=== PATIENT | male | born 1960 | race Caucasian/White ===

== ENCOUNTER 2024-10-11 07:34 | Outpatient (OUT) | payer OTHER, SELFPAY ==
--- NOTE | 2024-10-11 | MR_ITS ---
[address] [address] Patient Name: VIV HUGHES MRN: [id number] date: 1960 Sex: M Assigned Patient Location: MRI Current Patient Location: MRI Accession/Order Number: [id number] Exam Date: 10/11/2024 13:01 Report Date: 10/11/2024 13:14 At the request of: KWASI RENEE DO Procedure: MR cervical spine wo con EXAMINATION: MRI C-SPINE WITHOUT IV CONTRAST CLINICAL HISTORY: Chronic cervical pain for years. No known injury. COMPARISON: None. TECHNIQUE: Multiecho imaging was performed in the sagittal and axial planes without contrast administration. FINDINGS: Vertebral body heights appear maintained. Cervicomedullary junction appears normal. No abnormal cord signal. No prevertebral soft tissue swelling. No paraspinal mass. At C2-3: No posterior disc pathology. No neural canal or foraminal stenosis. Facet joint degenerative change At C3-4: Disc osteophyte complex is present causing mild canal and moderate left-sided neural foraminal stenosis. Facet joint degenerative changes. At C4-5: No posterior disc pathology. No neural canal or foraminal stenosis. Facet joint degenerative changes. At C5-6: No posterior disc pathology. No neural canal or foraminal stenosis. Facet joint degenerative changes. At C6-7: No posterior disc pathology. No neural canal or foraminal stenosis. Facet joint degenerative changes. At C7-T1: No posterior disc pathology. No neural canal or foraminal stenosis. MR/MR cervical spine wo con IMPRESSION: Disc osteophyte complex present at C3-4 causing mild canal and moderate left-sided neural foraminal stenosis. Impression dictated by: Jairon Mccarty Jr., JanethOChandni10/11/2024 1:14 PM Dictation Location: [employer] [facility] Electronically authenticated by: [id number] Y Date: 10/11/2024 13:14
--- NOTE | 2024-10-11 | MR_ITS ---
The [address] [address] Patient Name: VIV HUGHES MRN: [id number] date: 1960 Sex: M Assigned Patient Location: MRI Current Patient Location: MRI Accession/Order Number: [id number] Exam Date: 10/11/2024 12:56 Report Date: 10/11/2024 13:38 At the request of: KWASI RENEE DO Procedure: MR thoracic spine wo con MR thoracic spine wo con 10/11/2024 9:03 AM SIGNS AND SYMPTOMS: Back pain after injury PROTOCOL: Multiplanar multisequence MR images of the thoracic spine were obtained without IV contrast COMPARISON: None. FINDINGS: A marker is present at the level of the C7 superior endplate posteriorly as well as the T9-T10 intervertebral disc level posteriorly. The bones of the thoracic spine are in anatomic alignment. There is preservation of vertebral body heights. There is disc desiccation with mild disc height loss at T9-T10 and T10-T11. There is accompanying anterior osteophyte formation with Modic type I endplate edema. No epidural or paraspinous fluid collection is appreciated. The visualized paraspinous soft tissues are within normal limits. At T1-T2: There is a normal disc, central canal, and neural foramen. At T2-T3: There is a normal disc, central canal, and neural foramen. At T3-T4: There is a normal disc, central canal, and neural foramen. At T4-T5: There is a normal disc, central canal, and neural foramen. At T5-T6: There is a normal disc, central canal, and neural foramen. At T6-T7: There is a normal disc, central canal, and neural foramen. At T7-T8: There is endplate osteophyte formation with facet hypertrophy contributing to mild left neural foraminal narrowing. No spinal canal narrowing. At T8-T9: There is endplate osteophyte formation with facet hypertrophy contributing to mild left neural foraminal narrowing. No spinal canal narrowing. At T9-T10: There is a broad-based disc bulge with facet hypertrophy contributing to mild spinal canal narrowing and mild to moderate bilateral neural foraminal stenosis. At T10-T11: Facet hypertrophy is present on the left contributing to mild to moderate left neural foraminal stenosis. No significant spinal canal narrowing. At T11-T12: There is a normal disc, central canal, and neural foramen. At T12-L1: There is a normal disc, central canal, and neural foramen. MR/MR thoracic spine wo con IMPRESSION: No cord compression or cord signal abnormality. Degenerative changes are noted in the mid and lower thoracic spine as above. There are variable degrees of spinal canal and neural foraminal stenosis which appear to be most pronounced at T10-T11 as above. Impression dictated by: Aron Torres M.D.10/11/2024 1:38 PM Dictation Location: [place] [address] Electronically authenticated by: [id number] Y Date: 10/11/2024 13:38
== END 2024-10-11 07:35 | disposition home or self-care (01) ==
LOC: MRI 07:35
PROVIDERS: Family Provider Internal Medicine; PCP Internal Medicine; Visit Provider Internal Medicine
DX: M54.9 Dorsalgia, unspecified (principal); M54.50 Low back pain, unspecified; M54.2 Cervicalgia; M62.830 Muscle spasm of back; M48.04 Spinal stenosis, thoracic region; M48.02 Spinal stenosis, cervical region
CPT/HCPCS: 72141; 72146

== ENCOUNTER 2024-10-15 14:33 | Outpatient (OUT) | payer OTHER, SELFPAY ==
--- NOTE | 2024-10-15 15:50 | P.CN_ITS ---
Consult Note: HPI Data of Consult Patient: new to practice Consult date: 10/15/24 Requesting Physician: Raven Bullock MD Primary Care Provider: KWASI RENEE DO Family Provider: MONICA LAYNE Consult Narrative Reason for consult: neck, midback pain Narrative: 64yom who presents for evaluation. notes worsening pain in neck, lower midback region. imaging reviewed, which shows multilevel facet degeneration of cervical spine. thoracic imaging shows multilevel degenerative changes and stenosis, worst at t9-10 and t10-11. has continued in a series of provider directed home exercises >6 weeks, without lasting benefit. uses otc pain meds as needed. denies adverse med side effects. cc:: CC: Raven Bullock MD Review of Systems ROS Status of ROS 10 or more systems reviewed and unremark able except as noted in history and below Exam Narrative Exam Narrative: Psych-alert and oriented x 3. Attentive and appropriate, constitutionally normal, displays normal mood and affect per situation. There are no obvious deficits in memory, reasoning, or intellect.? Skin-no obvious rashes, bruising, erythema noted to the patient's area of pain.? Extremities- extremities are warm with minimal edema and palpable pulses. Thoracic-tenderness to palpation noted in the thoracic spine and paraspinal musculature. Facet loading maneuvers are positive.? Strength-noted to be unremarkable Sensory-no notable sensory deficits to touch or pinprick in all dermatomal distributions with the exception to decreased sensation to the bilateral T9, 10, 11 dermatomal distribution Coordination remains intact.? Gait remains non-antalgic. Assessment and Plan Assessment and Plan (1) Thoracic radiculopathy: (2) Thoracic spinal stenosis: (3) Thoracic spondylosis: (4) Cervical spondylosis: Plan 64yom who presents for evaluation. failed conservative measures, as noted. imaging reviewed, as noted. given symptoms and imaging findings, prudent to attempt bilateral t9-10 tfesi under fluoroscopic guidance. also may benefit from diagnostic bilateral c5-6, 6-7 medial branch blocks in the future. he is in agreement. meds reviewed, no changes. follow up after procedure.
== END 2024-10-15 14:34 | disposition home or self-care (01) ==
LOC: PM 14:34
PROVIDERS: Family Provider Internal Medicine; PCP Internal Medicine; Visit Provider Anesthesiology
DX: M54.14 Radiculopathy, thoracic region (principal); M48.04 Spinal stenosis, thoracic region; M47.814 Spondylosis without myelopathy or radiculopathy, thoracic region; M47.812 Spondylosis without myelopathy or radiculopathy, cervical region
CPT/HCPCS: G0463

== ENCOUNTER 2024-10-29 06:58 | Day surgery (SDC) | payer OTHER, SELFPAY ==
[2024-10-29 07:03] VITALS: BP 156/99; PULSE 61; TEMP 36.3; O2SAT 99
[2024-10-29 07:48] VITALS: BP 142/93; PULSE 65; O2SAT 93
[2024-10-29] MEDS: DEXAMETHASONE SOD PHOS 10 MG/ML VIAL INJ (07:50)
[2024-10-29] MEDS: IOHEXOL 240 MG/ML - 10 ML VIAL INJ (07:50)
[2024-10-29] MEDS: 0.9 % SODIUM CHLORIDE 10 ML SYRINGE - SALINE FLUSH INJ (07:50)
[2024-10-29] MEDS: BUPIVACAINE HCL 0.25% PF 25 MG/10 ML VIAL INJ (07:50)
[2024-10-29 07:51] VITALS: BP 128/102; PULSE 62; O2SAT 97
[2024-10-29] MEDS: LIDOCAINE HCL 2% 400 MG/20 ML MDV 3 ML INJ (07:51)
--- NOTE | 2024-10-29 07:52 | W.PM.PROCNOT ---
Date of procedure: 10/29/24 Pre-op diagnosis: M54.14 Post-op diagnosis: same as pre-op Procedure: Procedure: Bilateral T9-10 transforaminal epidural steroid injection Medications: Bupivacaine 0.25% 2cc, lidocaine 2% 1cc, dexamethasone 10mg The patient was seen and examined in the preoperative holding area.? Informed consent was obtained and placed on the chart.? Patient was brought to the medical procedure unit and placed in the prone position where a timeout was completed verifying the correct patient, procedure site, position, and planned special equipment using sterile aseptic technique.? Under direct fluoroscopic visualization a 25-gauge Quincke tipped spinal needle was advanced at level left T9-10 to the designated neural foramen where contrast dye was injected to show adequate spread.? There was no evidence of vascular or adverse uptake.? Epidural spread was appreciated.? The above-mentioned injectate was then placed in a 1.5 mL aliquot preceded by negative aspiration.? The needle was removed. The same procedure, at the same level, was completed on the opposite side. ? Patient was taken to the postprocedural recovery area and monitored for an appropriate length of time before found suitable for discharge in the accompaniment of a responsible adult. Anesthesia: Local Surgeon: Raven Bullock Pathology: none sent Condition: stable Disposition: no change
== END 2024-10-29 07:57 | disposition home or self-care (01) ==
PROVIDERS: Family Provider Internal Medicine; PCP Internal Medicine; Visit Provider Anesthesiology
DX: M54.14 Radiculopathy, thoracic region (principal)
CPT/HCPCS: 64479; J0665; J1100; Q9966

== ENCOUNTER 2024-11-14 15:16 | Outpatient (OUT) | payer OTHER, SELFPAY ==
--- NOTE | 2024-11-14 15:37 | P.CN_ITS ---
Consult Note: HPI Data of Consult Patient: known to practice within the last 3 years Requesting Physician: Katja Hayden NP Primary Care Provider: KWASI RENEE DO Family Provider: MONICA LAYNE Consult Narrative Reason for consult: f/u Narrative: Chaitanya giang pleasant 64 year old male presents for evaluation and management of chronic middle back, neck, and left SIJ pain. longstanding hx of pain unresponsive to >6 weeks of provider guided HEP, heat, ice, tylenol, chiropractor. recently underwent bilateral T9/10 TFESI with >50% improvement ongoing. pt expresses concern over left SIJ pain. cc:: CC: Katja Hayden NP Review of Systems ROS Status of ROS 10 or more systems reviewed and unremark able except as noted in history and below Musculoskeletal Reports: back pain and joint pain PFSH PFSH Medical History (Updated 11/14/24 @ 15:39 by Katja Hayden NP) Osteoarthritis ?M19.90 - Unspecified osteoarthritis, unspecified site (ICD-10) Hiatal hernia ?K44.9 - Diaphragmatic hernia without obstruction or gangrene (ICD-10) Enlarged prostate ?N40.0 - Benign prostatic hyperplasia without lower urinary tract symptoms (ICD-10) High cholesterol ?E78.00 - Pure hypercholesterolemia, unspecified (ICD-10) HTN (hypertension) ?I10 - Essential (primary) hypertension (ICD-10) Kidney stone ?N20.0 - Calculus of kidney (ICD-10) Surgical History History of knee surgery ?Z98.890 - Other specified postprocedural states (ICD-10) History of hernia repair ?Z98.890 - Other specified postprocedural states (ICD-10) ?Z87.19 - Personal history of other diseases of the digestive system (ICD-10) History of shoulder surgery ?Z98.890 - Other specified postprocedural states (ICD-10) History of carpal tunnel release ?Z98.890 - Other specified postprocedural states (ICD-10) Meds Home Medications and Allergies Home Medications ?Medication ?Instructions ?Recorded ?Confirmed ?Type cetirizine 10 mg tablet (Aller-Tomás) 10 mg PO DAILY PRN allergy symptoms 10/16/24 10/29/24 History cyclobenzaprine 10 mg tablet 10 mg PO BID PRN muscle spasm 10/16/24 10/29/24 History ezetimibe 10 mg tablet 10 mg PO DAILY 10/16/24 10/29/24 History lidocaine 4 % topical patch 1 patch topical Q12H 10/16/24 10/29/24 History (Lidocare) tumeric 10/29/24 History Allergies Allergy/AdvReac Type Severity Reaction Status Date / Time NSAIDS (Non-Steroidal AdvReac Chest Pain Verified 10/29/24 07:07 Anti-Inflamma Exam Constitutional Documenting provider has reviewed patient's vital signs: yes Common normals: no apparent distress, oriented x3, healthy appearing, alert and well nourished General appearance: cooperative HENMT Common normals: normocephalic, hearing grossly normal bilaterally and moist oral mucous membranes Head and scalp: normocephalic Eye Common normals: PERRL Pupil: PERRL Neck & C-Spine Common normals: full ROM General: normal visual inspection Chest Common normals: inspection of chest normal Respiratory Common normals: normal respiratory effort, no retractions and no use of accessory muscles Back & Pelvis Thoracic spine/upper back: normal to inspection and thoracic ROM normal; no pain with ROM and no thoracic spinal tenderness Lumbar spine/lower back: normal to inspection and lumbar ROM normal Sacroiliac joints: SI joint(s) abnormal Other: negative thoracic radiculopathy left sij positive zeke(patricks), gaenslens, thigh thrust, compression test Neuro Common normals: oriented x3, CN's II-XII intact bilaterally, moves all extremities, no focal motor deficits, no sensory deficits noted and deep tendon reflexes 2+ bilaterally Sensorium/orientation: alert Motor exam: strength 5/5 throughout and no movement abnormalities noted Psych Common normals: mental status grossly normal, thought process normal, cooperative, affect normal, speech normal and activity/motor behavior normal Speech: normal speech Thought process: normal thought process Results Additional Findings Additional findings: If on a controlled substance or opioids, I have checked an [place] report on this patient and there are no aberrancies noted in the prescribing history.??If on a controlled substance or opioid a drug screen was completed and reviewed within the last year, and if there has not been a drug screen completed we ordered one today to monitor higher risk, state monitored pain medication use. As part of providing excellent, safe, comprehensive care, the following was completed at our patient's visit: 1. A medication reconciliation and review to ensure accurate knowledge of current/active medications, including asking our patients to inform us about any yfbe-wqm-ialuxtd medications or herbal remedies/nutritional supplements/alternative remedies. 2. A review to specifically ensure our patients have had annual screening for screening for depression, screening for tobacco use, and screening for unhealthy alcohol use. For concerning screenings had a discussion with the patient, provided patient education, and recommended follow-up with primary care provider when appropriate. If patient noted with a risk of falling, they received education on strength, gait, and balance training to prevent future risk of falling. Portions of this note may have been carried over from the previous visit and updated as appropriate. Please note this office utilizes paper charting in addition to the electronic edical record. A list of current medications, vitals, and PMH is available there as the clinical staff outside of myself do not have access to [employer] charting during the clinic day operations. As part of providing quality comprehensive care the current medications, vitals, and PMH were reviewed in the paper chart. Assessment and Plan Assessment and Plan (1) Thoracic radiculopathy: Assessment and Plan: >50% improvement ongoing from bilateral T9/10 TFESI on 10/29/24 (2) Thoracic spinal stenosis: (3) Cervical spondylosis: (4) Thoracic spondylosis: (5) Sacroiliitis: Plan pain well controlled at this time, continue HEP as tolerated, continue current medications. consider left SIJ injection in the future if needed, pain well controlled at this time per pt with medications stretching and chiropractor. f/u PRN
== END 2024-11-14 15:17 | disposition home or self-care (01) ==
LOC: PM 15:17
PROVIDERS: Family Provider Internal Medicine; PCP Internal Medicine; Visit Provider Nurse Practitioner
DX: M54.14 Radiculopathy, thoracic region (principal); M48.04 Spinal stenosis, thoracic region; M47.812 Spondylosis without myelopathy or radiculopathy, cervical region; M47.814 Spondylosis without myelopathy or radiculopathy, thoracic region; M46.1 Sacroiliitis, not elsewhere classified
CPT/HCPCS: G0463

== ENCOUNTER 2025-08-19 15:19 | Outpatient (OUT) | payer OTHER, SELFPAY ==
--- OUTSIDE RECORDS SUMMARY | 2025-08-19 15:25 | XMS_ITS | Clinical Summary ---
Author Organization [facility] Address [address] [place] [address] Care Team Providers Care Tobacco Dipper Name Role Phone Unavailable Primary Care Provider Unavailabl e Social History Tobacco UseTypesPacks/DayYears UsedDateSmoking Tobacco: Never AssessedSex and Gender InformationValueDate RecordedSex Assigned at BirthNot on fileLegal Sex Male11/03/2022 7:13 PM EDTGender IdentityNot on fileSexual OrientationNot on file Last Filed Vital Signs Vital SignReadingTime TakenCommentsBlood Ftpyiukg957/9705 12:00 PM EDT Pulse--Temperature--Respiratory Rate--Oxygen Saturation--Inhaled Oxygen Concentration--Kbooqi41.6 kg (213 lb)01/08/2021 12:00 PM MZLVhpbwn723.2 cm (5' 7 )01/08/2021 12:00 PM EDTBody Mass Index33.36001/08/2021 12:00 PM EDT Plan of Treatment Not on file
--- OUTSIDE RECORDS SUMMARY | 2025-08-19 15:25 | XMS_ITS | Clinical Summary ---
Author Organization [facility] Address [address] [place] [address], [address] [place] [address] Care Team Providers Care Industrial Hygenist Name Role Phone Unavailable Primary Care Provider Unavailabl e Social History Tobacco UseTypesPacks/DayYears UsedDateSmoking Tobacco: Never AssessedSex and Gender InformationValueDate RecordedSex Assigned at BirthNot on fileLegal Sex Male10/01/2012 6:18 PM ESTGender IdentityNot on fileSexual OrientationNot on file Plan of Treatment Not on file
--- OUTSIDE RECORDS SUMMARY | 2025-08-19 15:25 | XMS_ITS | Patient Health Record ---
Author Organization [facility] [place] Address [address] [place] [address] Care Team Providers Care Green Tire Inspector Name Role Phone Tyree Sharpe DO Primary Care Provider Unavail able Allergies Allergen (clinical drug ingredient) Drug/Non Drug Allergy documented on EMR Reaction Allergy Type Onset Date Status naproxen Naproxen Unknown Drug Allergy Active Reason For Referral No Information Medications Medication SIG (Take, Route, Frequency, Duration) Notes Start Date End Date Status Crestor 40 MG 1 tablet Orally Once a day; Dura tion: 30 day(s) ActivePrevacidActive Social History Tobacco Use: Social History Observation Description Date Details (start date - stop date) Former Smoker NA - NA Tobacco Use/Smoking Question Answer Notes Patient is a former smoker Plan Of Treatment No Information Insurance Providers Payer Name Payer Address Payer Phone Subscriber Number Group Number Insured Name Patient Relationship to Insured Coverage Start Date Coverage End Date [employer] [address] [address] [place], [place] [id number] [facility] Daniele Tavares Self - patient is the insured 9 Medical (General) History Medical History History ICD Code No Defibrilator No PacemakerSurgical History Surgery Date(Month/Year) kidney stone kneeshouldercarpel tunnel
--- OUTSIDE RECORDS SUMMARY | 2025-08-19 15:25 | XMS_ITS | Clinical Summary ---
Author Organization [facility] Address [address] [place] [address] Care Team Providers Care Tractor Drill Operator Name Role Phone René DARLING MD, Tonny Brink Primary Care Provider [phone] Allergies Active AllergyReactionsCriticalityNoted JzuoWnvurofhNnoc40/08/2010[place] 10/27/2009Wheat Cynafi6910/27/2009 Medications MedicationSigDispense QuantityRefillsLast FilledStart DateEnd DateStatus esomeprazole mag trihydrate(NEXIUM 20 MG CAP) Take one(1) tablet two(2) times daily.ctive mometasone furoate(NASONEX 50 MCG/ACTUATION SPRAY) [place] twice in each nostril once daily.ctive NEOMYCIN 500 MG TAB Take one(1) tablet three times daily.ctive SACCHAROMYCES BOULARDII 250 MG ORAL PACKET Take four (4) tables uxdad245ctive ferumoxsil(GASTROMARK 175 MCG/ML ORAL SUSP) Gastro-Cleanse - use as directed.ctive Active Problems ProblemNoted DateDiagnosed SeehVwsbqaygry07/04/2010Erectile dysfunction 08/25/2009 Social History Tobacco UseTypesPacks/DayYears UsedDateSmoking Tobacco: Never AssessedSex and Gender InformationValueDate RecordedSex Assigned at BirthNot on fileLegal Sex Male07/23/2012 8:26 AM ESTGender IdentityNot on fileSexual OrientationNot on file Last Filed Vital Signs Vital SignReadingTime TakenCommentsBlood Vbagkdru390/9210/27/2009 3:22 PM EST Cspzw050910/27/2009 3:22 PM KAWGnsevxzsbdn46.2 ??C (99 ??F)10/27/2009 1:14 PM EST Respiratory Bslw446510/27/2009 3:22 PM ESTOxygen Saturation--Inhaled Oxygen Concentration--Ctxout87.7 kg (211 lb)10/27/2009 1:14 PM ZNWJtcqgh702.6 cm (5' 6 )10/27/2009 1:14 PM ESTBody Mass Index34.0610/27/2009 1:14 PM EST Plan of Treatment Health MaintenanceDue DateLast DoneCommentsAnxiety Psvuppibz21/09/1979Depression Ddnzgrkto39/09/1979HIV Khclrkcoh47/09/1979Hepatitis C Bblpalrfx54/09/1979 DTaP,Tdap,Td Vaccine (1 - Tdap)1980Lipid Uieoerrhx43/09/1996CT Yqlhbwplkxcb72/09/2006Cologuard (FIT-DNA)04/30/20066001Wxxglqvbrgq70/09/2006 Colorectal Cancer Ynowjimkh83/09/2006Diabetes Ggepuktcy17/09/2006Fecal Occult Blood2006Prostate Cancer Screening Oynekjsijm35/09/2006Sigmoidoscopy 2006Pneumococcal Vaccine: 50+ (1 of 1 - PCV)2011Shingrix Vaccine (1 of 2)2011Covid-19 Vaccine (1 - 2024- season)2025Influenza Vaccine (#1)2025RSV Vaccine (1 - 1-dose 75+ series)2036 Insurance Care Teams Team MemberRelationshipSpecialtyStart DateEnd Date Tonny Merritt II, MD PCP - Oxeoqvi59/2/09
--- OUTSIDE RECORDS SUMMARY | 2025-08-19 15:25 | XMS_ITS | Clinical Summary ---
Author Organization [employer] tem Address [id number] [address] [place] [address] Care Team Providers Care Supervisor Drilling And Shooting Name Role Phone Dell Myers DO, Charles L Primary Care Provider Allergies Active AllergyReactionsCriticalityNoted EnriSdplhyeqQjcqtydkQqk86/20/2019 Medications MedicationSigDispense QuantityRefillsLast FilledStart DateEnd DateStatus ondansetron ODT (ZOFRAN ODT) 4 mg disintegrating tablet Dissolve 1 tablet (4 mg total) on tongue 3 (three) times a day as needed for nausea for up to 3 doses. 3 tablet 4Active Additional Information Patient not taking.Reported on 12/04/2024 ezetimibe (ZETIA) 10 mg tablet Take 1 tablet (10 mg total) by mouth in the morning.Active cetirizine (ZyrTEC) 10 MG chewable tablet Chew 1 tablet (10 mg total) and swallow in the morning.Active Active Problems ProblemNoted DateDiagnosed DateHiatal hernia with GERD without esophagitis Encounters DateTypeDepartmentCare SpuuTwwbkwvoqll00/20/2025Orders Only [facility] [address] [phone] Margie Mccann RN Ascending aorta dilatation (Primary Dx)05/27/2025 9:30 AM EDT - 05/27/2025 10:15 AM EDTSurgery [facility] [address] [place] [phone] Evgeny Lee MD ESOPHAGOGASTRODUODENOSCOPY EHLBDUHQEY25/06/2025 9:[address] [facility] - [facility] [address] [address] [place] [phone] Evgeny Lee MD Peterson, Lauren L Jr., SALES AND DISTRIBUTION CLERK-PATIENT EXPERIENCE COORDINATOR 05/27/2025 8:32 AM EDT - 05/27/2025 10:[address] [facility] [address] [facility] [place] [phone] Evgeny Lee MD Esophageal dysphagia; Pseudopolyposis of colon, unspecified complication status, unspecified part of colon ([facility]) Discharge Disposition: Home05/27/2025Travelfrom Last 3 Months Family History Medical HistoryRelationNameCommentsCancerFatherCancerMotherskin and breast pancreaticRelationNameStatusCommentsFatherMother Social History Tobacco UseTypesPacks/DayYears UsedDateSmoking Tobacco: FormerSmokeless Tobacco: Never Tobacco Cessation:Counseling Given: Not Answered Alcohol UseStandard Drinks/WeekCommentsYes0 (1 standard drink = 0.6 oz pure alcohol)OCCASIONALLYChildcareAnswerDate LgiflcfeRnnwfydakYusctpy09/12/2019 EmploymentAnswerDate TfkqobijYdpiaxuircHttfrns70/12/2019Hunger ScreeningAnswer Date RecordedWithin the past 12 months we worried whether our food would run out before we got money to buy more.Never True12/04/2024Within the past 12 months the food we bought just didn't last and we didn't have money to get more.Never True12/04/2024Purpose - LifeAnswerDate RecordedPurpose and direction in life Nblpdls1110/02/2020ex and Gender InformationValueDate RecordedSex Assigned at BirthNot on fileLegal GbdPogy8603/27/2015 11:34 AM EDTGender IdentityNot on file Sexual OrientationNot on file Last Filed Vital Signs Vital SignReadingTime TakenCommentsBlood Yuvaxwtf020/9610 10:10 AM EDT Ppazz245005/27/2025 10:10 AM DIOSaetrbqoqgc16.5 ??C (97.7 ??F)12/12/2023 1:24 PM EDTRespiratory Inha5240 10:10 AM EDTOxygen Bamtublhqs15%05/27/2025 10:10 AM EDTInhaled Oxygen Concentration--Omqupb44 kg (205 lb)05/27/2025 9:00 AM EDT Eaxksq519.6 cm (5' 6 )05/27/2025 9:00 AM EDTBody Mass Index33.0905/27/2025 9:00 AM EDT Plan of Treatment DateTypeDepartmentCare Team (Latest Contact Info)Qfurahfmprk90/30/2026 1:00 PM EDTAppointment [facility] [place] [address] [place] [phone] Health MaintenanceDue DateLast DoneCommentsDepression Pmbdhbtee06/09/1973Adult BMI Follow Up Plan1979DTaP,Tdap and Td Vaccines (1 - Tdap)1980Zoster (Shingles) Vaccine (1 of 2)2011Influenza Iavlyte1404/22/2025dult BMI Ztwidytru06Tobacco Levryjtji26RSV ( or age 60+ yrs) (1 - 1-dose 75+ series)2036 Medical Devices Not on file Procedures Procedure NamePriorityDate/TimeAssociated DiagnosisCommentsCOLONOSCOPY DIAGNOSTIC / CQLCGGZCN09/06/2025 9:23 AM EDT dysphagia,colon polyps Case Notes CARSON 45 MIN.T./DNM Special Needs DNM ESOPHAGOGASTRODUODENOSCOPY CPSPOCPSNU58/06/2025 9:23 AM EDT dysphagia,colon polyps Case Notes [facility]SON 45 MIN.T./DNM Special Needs DNM PROVATION RFKAnepmwr77/06/2025 8:53 AM EDT Esophageal dysphagia Pseudopolyposis of colon, unspecified complication status, unspecified part of colon ([facility]) PROVATION WMUQVLSJCJXTwtnssv05/06/2025 8:53 AM EDT Esophageal dysphagia Pseudopolyposis of colon, unspecified complication status, unspecified part of colon ([facility]) from Last 3 Months Results * EGD Report (05/27/2025 8:53 AM EDT)Specimen (Source)Anatomical Location / LateralityCollection Method / VolumeCollection TimeReceived Time Narrative SYSTEMGENERATED, DOCUMENTATION - 05/27/2025 8:53 AM EDT This order has been auto-finalized for image and report archival in PACs. *For full report details, please reach out to your physician. ??This image is visible to you in MyChart.* Authorizing ProviderResult TypeResult StatusEvgeny Lee MDIMG OR IMG ORDERABLESFinal Result * Colonoscopy Report (05/27/2025 8:53 AM EDT)Specimen (Source)Anatomical Location / LateralityCollection Method / VolumeCollection TimeReceived Time Narrative SYSTEMGENERATED, DOCUMENTATION - 05/27/2025 8:53 AM EDT This order has been auto-finalized for image and report archival in PACs. *For full report details, please reach out to your physician. ??This image is visible to you in MyChart.* Authorizing ProviderResult TypeResult Rafita LESTERG OR IMG ORDERABLESFinal Result from Last 3 Months Insurance Care Teams Team MemberRelationshipSpecialtyStart DateEnd Date Tyree Sharpe Jr., [address] [place], [place] [phone] [facility]12/12/23
--- NOTE | 2025-08-19 15:28 | XR_ITS ---
The [address] [address] Patient Name: VIV HUGHES MRN: [id number] date: 1960 Sex: M Assigned Patient Location: [facility] Current Patient Location: Accession/Order Number: [id number] Exam Date: 08/19/2025 15:39 Report Date: 08/20/2025 01:00 At the request of: KWASI RENEE DO Procedure: XR hip LT min 2V XR hip LT min 2V 08/19/2025 3:44 PM SIGNS AND SYMPTOMS: ^Left Hip Pain PROTOCOL: Frontal and frog-leg views of the left hip COMPARISON: None FINDINGS: There is no evidence of fracture or dislocation. There is mild narrowing of the left hip joint space with os acetabuli suggesting underlying labral pathology. There is enthesophyte formation at the greater trochanter. XR/XR hip LT min 2V IMPRESSION: No acute bony injury. There is mild narrowing of the left hip joint space with os acetabuli suggesting underlying labral pathology. Impression dictated by: Aron Torres M.D. 08/20/2025 1:00 AM Dictation Location: [place] [address] Electronically authenticated by: [id number] Y Date: 08/20/2025 01:00
--- NOTE | 2025-08-19 15:28 | XR_ITS ---
The [place] [id number] Patient Name: VIV HUGHES MRN: [id number] date: 1960 Sex: M Assigned Patient Location: [facility] Current Patient Location: Accession/Order Number: [id number] Exam Date: 08/19/2025 15:39 Report Date: 08/20/2025 00:59 At the request of: KWASI RENEE DO Procedure: XR knee VIKRAM 3V XR knee VIKRAM 3V 08/19/2025 3:44 PM SIGNS AND SYMPTOMS: ^Bilateral Knee Pain PROTOCOL: Frontal, lateral, and oblique radial graphs of the bilateral knees COMPARISON: None FINDINGS: There is narrowing of the weightbearing joint spaces greatest medially. There is spurring of the tibial spines. There is patellofemoral joint space loss bilaterally with spurring at the superior poles of the patella. There is no joint effusion. No soft tissue swelling. No fracture or dislocation. XR/XR knee VIKRAM 3V IMPRESSION: No acute bony injury. Tricompartmental degenerative changes are noted greatest in the patellofemoral joint spaces. Impression dictated by: Aron Torres M.D. 08/20/2025 12:59 AM Dictation Location: [place] [address] Electronically authenticated by: [id number] Y Date: 08/20/2025 00:59
== END 2025-08-19 15:20 | disposition home or self-care (01) ==
LOC: RAD 15:22
PROVIDERS: Family Provider Internal Medicine; PCP Internal Medicine; Visit Provider Internal Medicine
DX: M25.561 Pain in right knee (principal); M25.562 Pain in left knee; M25.552 Pain in left hip
CPT/HCPCS: 73502; 73562